=== PATIENT | male | born 1955 | race Caucasian/White ===

== ENCOUNTER 2021-08-31 10:16 | Emergency (ER) | payer OTHER ==
[2021-08-31 11:43] LABS: BASOPHIL 0.6 % (0-2); EOSINOPHIL 3.6 % (0-7); HCT 40.7 % (42.0-52.0); HGB 13.6 g/dl (13.2-18.0); LYMPHOCYTE 34.5 % (15-48); MCH 29.8 pg (25.0-31.0); MCHC 33.4 g/dL (32.0-36.0); MCV 89.3 fL (78.0-100.0); MONOCYTE 8.6 % (0-12); MPV 9.7 fL (6.0-9.5); NEUTROPHIL 52.4 % (41-80); NRBC 0; PLT 213 K/uL (150-400); RBC 4.56 M/uL (4.70-6.00); RDW 12.3 % (11.5-14.0)
[2021-08-31 11:44] LABS: BILIRUBIN NEGATIVE (NEGATIVE); BLOOD 1+ Ery/uL (NEGATIVE); CLARITY CLEAR (CLEAR); COLOR YELLOW (YELLOW); GLUCOSE (U) NORMAL (NORMAL); LEUKOCYTES NEGATIVE Leu/uL (NEGATIVE); NITRITE NEGATIVE (NEGATIVE); PROTEIN NEGATIVE (NEGATIVE); UROBILINOGEN 0.2 mg/dL (0.2-1.0); pH 6.5 (5.0-9.0)
[2021-08-31 11:54] LABS: SQUAMOUS EPITHELIAL CELLS RARE; URINARY RBC RARE
[2021-08-31 11:56] LABS: INR 0.97 (0.9-1.2); PROTHROMBIN TIME 12.3 SECONDS (11.8-13.4); PTT 26.9 SECONDS (24.4-34.7)
[2021-08-31 12:06] LABS: BUN/CREAT RATIO (CALC) 18.1 RATIO; CREATININE 1.6 mg/dL (0.67-1.17); POTASSIUM 3.7 mmol/L (3.5-5.1)
[2021-08-31] MEDS ORDERED: AMOX TR-K CLV1 EAC4 PO (12:54)
== END 2021-08-31 13:53 | disposition home or self-care (01) ==
LOC: FER 10:16
PROVIDERS: Emergency Medicine
DX: J01.00 Acute maxillary sinusitis, unspecified (principal); I10 Essential (primary) hypertension; Z86.73 Personal history of transient ischemic attack (TIA), and cerebral infarction without residual deficits; Z79.02 Long term (current) use of antithrombotics/antiplatelets; Z79.899 Other long term (current) drug therapy
CPT/HCPCS: 36415; 70450; 70486; 71046; 80048; 81001; 84484; 85025; 85610; 85730; 93005